=== PATIENT | female | born 1995 | race Caucasian/White ===

== ENCOUNTER 2018-05-21 14:10 | Emergency (ER) | payer OTHER ==
[~2018-05-21] VITALS: Ht 162.6 cm; Wt 65.8 kg
[2018-05-21] MEDS ORDERED: SODIUM CHLORIDE 0.9% 1000ML 1,000 ML IV STA (15:43)
[2018-05-21] MEDS ORDERED: MORPHINE SULFATE INJ 4 MG/ML INJ IV STA (15:43)
[2018-05-21] MEDS ORDERED: ONDANSETRON HCL INJ 2 MG/ML VIAL IV STA ×2 (15:43→19:17)
[2018-05-21 15:57] LABS: BASOPHILS % 0.4 % (0.0-1.0); EOSINOPHILS % 0.4 % (0.0-6.0); HEMATOCRIT 43.5 % (34.2-44.1); HEMOGLOBIN 14.6 g/dL (12.0-16.0); LYMPHOCYTES # (AUTO) 1.4 (1.0-3.2); LYMPHOCYTES % 13.1 % (18.0-39.1); MEAN CORPUSCULAR HEMOGLOBIN 30.4 pg (28-32); MEAN CORPUSCULAR HGB CONC 33.6 g/dL (31-35); MEAN CORPUSCULAR VOLUME 90.4 fL (81-99); MONOCYTES # (AUTO) 0.5 (0.2-0.8); MONOCYTES % 5.1 % (4.4-11.3); NEUTROPHILS # (AUTO) 8.4 (2.1-6.9); NEUTROPHILS % 80.5 % (38.7-80.0); PLATELET COUNT 425 x10e3/uL (140-360); RED BLOOD COUNT 4.81 x10e6/uL (3.6-5.1); RED CELL DISTRIBUTION WIDTH 12.5 % (11.7-14.4)
[2018-05-21 16:25] LABS: ALANINE AMINOTRANSFERASE 14 IU/L (0-55); ALBUMIN 4.3 g/dL (3.5-5.0); ALBUMIN/GLOBULIN RATIO 1.1 (0.8-2.0); ALKALINE PHOSPHATASE 89 IU/L (40-150); AMYLASE 16 U/L (25-125); ANION GAP 19.3 mmol/L (8-16); BLOOD UREA NITROGEN 8 mg/dL (7-26); BUN/CREATININE RATIO 12 (6-25); CALCIUM 10.6 mg/dL (8.4-10.2); CARBON DIOXIDE 19 mmol/L (22-29); CHLORIDE 105 mmol/L (98-107); CREATININE, SERUM 0.68 mg/dL (0.57-1.11); EST GLOMERULAR FILTRATION RATE > 60 ML/MIN (60-); GLUCOSE 104 mg/dL (74-118); LIPASE 28 U/L (8-78); POTASSIUM 4.3 mmol/L (3.5-5.1); SODIUM 139 mmol/L (136-145)
--- NOTE | 2018-05-21 17:46 | Diagnostic Imaging Report ---
EXAMINATION: CT of the abdomen and pelvis with contrast. TECHNIQUE: Spiral CT images of the abdomen and pelvis were performed from the lung bases to the lesser trochanters after the intravenous administration of 100 cc of Isovue 370 and the oral administration of water. Coronal and sagittal reformatted images were obtained. COMPARISON: None. CLINICAL HISTORY:Uncontrolled nausea and abdominal pain DISCUSSION: ABDOMEN/PELVIS: LOWER THORAX:Unremarkable. HEPATOBILIARY: No focal hepatic lesions. No intra or extrahepatic biliary ductal dilation. GALLBLADDER: Cholecystectomy clips. SPLEEN: No splenomegaly. PANCREAS: No focal masses or ductal dilatation. ADRENALS: No adrenal nodules. KIDNEYS/URETERS: No hydronephrosis, stones, or solid mass lesions. 1.0 x 0.8 cm hypodense lesion in the left anterior interpolar region, which contains eccentric dystrophic peripheral calcification (series 2, image 30). A 6-7 mm hypodense lesion in the left inferior pole is too small to characterize. PELVIC ORGANS/BLADDER: Bladder and uterus are unremarkable. No adnexal masses. PERITONEUM/RETROPERITONEUM: No free air or fluid. LYMPH NODES: No intra-abdominal, retroperitoneal, pelvic or inguinal lymphadenopathy. VESSELS: The celiac trunk,superior and inferior mesenteric and bilateral renal arteries are patent The portal, superior mesenteric and splenic veins are patent. GI TRACT: Postoperative changes in the stomach and proximal small bowel, consistent with gastric bypass surgery. No bowel dilation or evidence of obstruction. Bowel within bowel appearance of the level of the small bowel anastomosis in the left upper quadrant (for example series 2, image 25 and coronal image 22),, without evidence of proximal bowel dilation or abnormal enhancement. No pericolonic inflammatory changes. No fluid collections or significant stranding in the right lower quadrant. BONES AND SOFT TISSUE: No bony destructive lesions. No soft tissue abnormalities. IMPRESSION: 1. Postoperative changes in the stomach and proximal small bowel consistent with gastric bypass surgery. 2. Findings in the left upper quadrant may represent transient intussusception (retrograde) (at the anastomosis site. No proximal or efferent loop dilation or evidence of abnormal enhancement. No evidence of obstruction. 3. Mildly complex 1.8 cm left renal cyst, which can be evaluated with renal ultrasound on a nonemergent basis. Signed by: Dr. Nikhil Fofana M.D. on 05/21/2018 5:43 PM
[2018-05-21] MEDS ORDERED: SODIUM CHLORIDE 0.9% 50ML 50 ML ONE (18:16)
[2018-05-21] MEDS ORDERED: IOPAMIDOL 370 MG/ML 200 ML INFUS..BTL INJ ONE (18:16)
[2018-05-21] MEDS ORDERED: MORPHINE SULFATE 2 MG/ML SYR IV STA (19:17)
[2018-05-21 20:29] VITALS: BP 146/90
== END 2018-05-21 21:33 | disposition home or self-care (01) ==
LOC: ER 14:10
DX: R10.30 Lower abdominal pain, unspecified (principal); R11.2 Nausea with vomiting, unspecified; K56.1 Intussusception
CPT/HCPCS: 36415; 74177; 80053; 82150; 83690; 84702; 85025; 99284; J2270 ×2; J2405; J7030; Q9967

== ENCOUNTER 2021-10-28 12:11 | Inpatient (IN) | payer OTHER ==
[~2021-10-28] VITALS: Ht 162.6 cm; Wt 70.8 kg
[2021-10-28] MEDS ORDERED: METHOTREXA25 MG/1 ML SC (12:26)
[2021-10-28] MEDS ORDERED: FOLIC ACID0.4 MG PO (12:26)
[2021-10-28] MEDS ORDERED: REMICADE100 MG/VIA (12:26)
[2021-10-28] MEDS ORDERED: ONDANSETRON HCL INJ 2MG/ML 2ML 2 MG/ML VIAL IV STA (12:27)
[2021-10-28] MEDS ORDERED: Morphine 4mg Syringe 4 MG/ML INJ IV STA (12:27)
[2021-10-28] MEDS ORDERED: SODIUM CHLORIDE 0.9% 1000ML 1,000 ML IV ONE (12:45)
[2021-10-28] MEDS ORDERED: SODIUM CHLORIDE 0.9% 50ML 50 ML ONE (14:19)
[2021-10-28] MEDS ORDERED: IOPAMIDOL 370 MG/ML 200 ML INFUS..BTL INJ ONE (14:19)
[2021-10-28] MEDS: PIPERACILLIN/TAZOBACTAM 3.375 GM in SODIUM CHLORIDE 0.9% 50ML 50 ML IV SCH ×2 (14:30→17:25)
[2021-10-28] MEDS ORDERED: Morphine 4mg Syringe 4 MG/ML INJ IV PRN (14:45)
[2021-10-28] MEDS ORDERED: PROMETHAZINE 25MG/ NS 50ML (IV) IV STA (14:54)
[2021-10-28] MEDS ORDERED: PROMETHAZINE HCL (IM) 25 MG/ML VIAL IM ONE (15:13)
[2021-10-28 16:16] VITALS: BP 127/87
[2021-10-28] MEDS: ONDANSETRON HCL INJ 2MG/ML 2ML 2 MG/ML VIAL IV PRN ×2 (17:06→22:33)
[2021-10-28] MEDS: SODIUM CHLORIDE 0.9% 1000ML 1,000 ML IV SCH ×2 (17:25→23:55)
[2021-10-28 20:00] VITALS: BP 120/74
[2021-10-28] MEDS ORDERED: PROMETHAZINE 12.5MG/ NACL 0.9% 12.5 MG/50 ML BAG IV PRN (20:45)
[2021-10-28 21:00] VITALS: BP 120/74
[2021-10-28] MEDS: Morphine 4mg Syringe 4 MG/ML INJ IV PRN (21:50)
[2021-10-28] MEDS ORDERED: FOLIC ACID 1 MG TAB PO ONE ×2 (23:00)
[2021-10-28] MEDS ORDERED: METOCLOPRAMIDE HCL 10 MG/2ML VIAL IV ONE (23:00)
[2021-10-28] MEDS: Pantoprazole IV 40 MG in SODIUM CHLORIDE 0.9% 50ML 50 ML IV SCH (23:56)
[2021-10-29] VITALS (7 sets, daily range): BP systolic 104–122; BP diastolic 60–80
[2021-10-29] MEDS: PIPERACILLIN/TAZOBACTAM 3.375 GM in SODIUM CHLORIDE 0.9% 50ML 50 ML IV SCH ×5 (00:04→23:38)
[2021-10-29] MEDS: Morphine 4mg Syringe 4 MG/ML INJ IV PRN ×6 (02:17→21:18)
[2021-10-29] MEDS: Pantoprazole IV 40 MG in SODIUM CHLORIDE 0.9% 50ML 50 ML IV SCH ×5 (03:35→23:38)
[2021-10-29] MEDS: METOCLOPRAMIDE HCL 10 MG/2ML VIAL IV SCH ×4 (05:56→23:38)
[2021-10-29 06:02] LABS: BASOPHILS # (AUTO) 0.1 (0.0-0.1); BASOPHILS % 0.6 % (0.0-1.0); EOSINOPHILS # (AUTO) 0.2 (0.0-0.4); HEMATOCRIT 31.3 % (34.2-44.1); HEMOGLOBIN 10.7 g/dL (12.0-16.0); LYMPHOCYTES # (AUTO) 2.8 (1.0-3.2); LYMPHOCYTES % 25.3 % (18.0-39.1); MEAN CORPUSCULAR HEMOGLOBIN 35.1 pg (28-32); MEAN CORPUSCULAR HGB CONC 34.2 g/dL (31-35); MEAN CORPUSCULAR VOLUME 102.6 fL (81-99); MONOCYTES # (AUTO) 0.9 (0.2-0.8); MONOCYTES % 7.8 % (4.4-11.3); NEUTROPHILS % 63.8 % (38.7-80.0); PLATELET COUNT 234 x10e3/uL (140-360); RED BLOOD COUNT 3.05 x10e6/uL (3.6-5.1); RED CELL DISTRIBUTION WIDTH 14.4 % (11.7-14.4)
[2021-10-29 06:06] LABS: CLARITY,URINE SL CLOUDY (CLEAR); COLOR,URINE AMBER (YELLOW); KETONES,URINE 2+ (NEGATIVE); LEUKOCYTE ESTERASE ,URINE NEGATIVE (NEGATIVE); NITRITE,URINE NEGATIVE (NEGATIVE); PROTEIN,URINE DIPSTICK NEGATIVE (NEGATIVE); URINE UROBILINOGEN 1 mg/dL (0.2 - 1)
[2021-10-29 06:16] LABS: ALBUMIN 3.2 g/dL (3.5-5.0); ALBUMIN/GLOBULIN RATIO 1.3 (0.8-2.0); ANION GAP 10.2 mmol/L (8-16); CALCIUM 7.9 mg/dL (8.4-10.2); CREATININE, SERUM 0.74 mg/dL (0.57-1.11); POTASSIUM 3.2 mmol/L (3.5-5.1)
[2021-10-29 06:18] LABS: AMORPHOUS SEDIMENT,URINE MODERATE (FEW); BACTERIA,URINE MODERATE /HPF; EPITHELIAL CELLS,URINE MODERATE /LPF
[2021-10-29] MEDS ORDERED: PANTOPRAZOLE SO40 MG PO (06:31)
[2021-10-29] MEDS ORDERED: ULTRAM50 MG PO (06:31)
[2021-10-29] MEDS: SODIUM CHLORIDE 0.9% 1000ML 1,000 ML IV SCH ×3 (06:45→21:39)
[2021-10-29] MEDS ORDERED: TRAMADOL HCL 50 MG TAB PO PRN (08:00)
[2021-10-29] MEDS ORDERED: FOLIC ACID 1 MG TAB PO SCH ×2 (09:00)
[2021-10-29] MEDS ORDERED: PANTOPRAZOLE SOD 40 MG TABEC PO SCH (09:00)
[2021-10-29] MEDS: FOLIC ACID 1 MG TAB PO SCH (09:17)
[2021-10-29] MEDS ORDERED: POTASSIUM CHLORIDE 20MEQ/100ML 100 ML IV STA (10:10)
[2021-10-29] MEDS: ONDANSETRON HCL INJ 2MG/ML 2ML 2 MG/ML VIAL IV PRN (21:19)
[2021-10-29 23:21] LABS: % IRON SATURATION 34 % (15-50); IRON 103 ug/dL (50-170); TOTAL IRON BINDING CAPACITY 301 ug/dL (261-478); TRANSFERRIN 215 mg/dL (180-382)
[2021-10-30] VITALS (7 sets, daily range): BP systolic 92–114; BP diastolic 53–78
[2021-10-30] MEDS: Morphine 4mg Syringe 4 MG/ML INJ IV PRN ×7 (00:20→21:34)
[2021-10-30] MEDS: ONDANSETRON HCL INJ 2MG/ML 2ML 2 MG/ML VIAL IV PRN ×2 (00:20→04:40)
[2021-10-30] MEDS: Pantoprazole IV 40 MG in SODIUM CHLORIDE 0.9% 50ML 50 ML IV SCH ×4 (05:19→14:57)
[2021-10-30] MEDS: PIPERACILLIN/TAZOBACTAM 3.375 GM in SODIUM CHLORIDE 0.9% 50ML 50 ML IV SCH ×3 (05:19→17:06)
[2021-10-30] MEDS: METOCLOPRAMIDE HCL 10 MG/2ML VIAL IV SCH ×3 (05:19→17:06)
[2021-10-30] MEDS: SODIUM CHLORIDE 0.9% 1000ML 1,000 ML IV SCH ×3 (06:51→14:57)
[2021-10-30] MEDS: FOLIC ACID 1 MG TAB PO SCH (08:10)
[2021-10-30] MEDS: CYANOCOBALAMIN INJ 1,000 MCG/ML VIAL IM SCH (09:18)
[2021-10-30] MEDS ORDERED: POTASSIUM CHLORIDE 20 MEQ TAB CR PO ONE (16:30)
[2021-10-31] VITALS: BP 108/70
[2021-10-31] MEDS: PIPERACILLIN/TAZOBACTAM 3.375 GM in SODIUM CHLORIDE 0.9% 50ML 50 ML IV SCH ×3 (00:27→12:09)
[2021-10-31] MEDS: METOCLOPRAMIDE HCL 10 MG/2ML VIAL IV SCH ×3 (00:27→12:09)
[2021-10-31] MEDS: Pantoprazole IV 40 MG in SODIUM CHLORIDE 0.9% 50ML 50 ML IV SCH ×4 (01:33→12:09)
[2021-10-31] MEDS: Morphine 4mg Syringe 4 MG/ML INJ IV PRN ×2 (01:33→05:20)
[2021-10-31 03:33] VITALS: BP 107/73
[2021-10-31 05:39] LABS: BASOPHILS # (AUTO) 0.1 (0.0-0.1); BASOPHILS % 0.9 % (0.0-1.0); EOSINOPHILS # (AUTO) 0.5 (0.0-0.4); EOSINOPHILS % 5.7 % (0.0-6.0); HEMATOCRIT 31.6 % (34.2-44.1); HEMOGLOBIN 10.9 g/dL (12.0-16.0); LYMPHOCYTES # (AUTO) 2.1 (1.0-3.2); LYMPHOCYTES % 27.2 % (18.0-39.1); MEAN CORPUSCULAR HEMOGLOBIN 34.8 pg (28-32); MEAN CORPUSCULAR HGB CONC 34.5 g/dL (31-35); MONOCYTES # (AUTO) 0.6 (0.2-0.8); MONOCYTES % 7.6 % (4.4-11.3); NEUTROPHILS # (AUTO) 4.6 (2.1-6.9); NEUTROPHILS % 58.2 % (38.7-80.0); PLATELET COUNT 206 x10e3/uL (140-360); RED BLOOD COUNT 3.13 x10e6/uL (3.6-5.1); RED CELL DISTRIBUTION WIDTH 13.3 % (11.7-14.4)
[2021-10-31 06:02] LABS: ALANINE AMINOTRANSFERASE 14 IU/L (0-55); ALBUMIN 3.4 g/dL (3.5-5.0); ALBUMIN/GLOBULIN RATIO 1.4 (0.8-2.0); ALKALINE PHOSPHATASE 66 IU/L (40-150); ANION GAP 9.5 mmol/L (8-16); CALCIUM 8.5 mg/dL (8.4-10.2); CARBON DIOXIDE 25 mmol/L (22-29); CHLORIDE 108 mmol/L (98-107); CREATININE, SERUM 0.65 mg/dL (0.57-1.11); EST GLOMERULAR FILTRATION RATE 109 ML/MIN (60-); GLUCOSE 87 mg/dL (74-118); POTASSIUM 3.5 mmol/L (3.5-5.1); SODIUM 139 mmol/L (136-145)
[2021-10-31 06:03] LABS: BUN/CREATININE RATIO 8 (6-25)
[2021-10-31 06:13] LABS: BLOOD UREA NITROGEN < 5 mg/dL (7-26)
[2021-10-31] MEDS: SODIUM CHLORIDE 0.9% 1000ML 1,000 ML IV SCH (06:46)
[2021-10-31 07:58] VITALS: BP 102/70
[2021-10-31 08:04] VITALS: BP 102/70
[2021-10-31] MEDS: FOLIC ACID 1 MG TAB PO SCH (08:15)
[2021-10-31] MEDS: CYANOCOBALAMIN INJ 1,000 MCG/ML VIAL IM SCH (08:15)
[2021-10-31] MEDS: ACETAMINOPHEN/CODEINE 300MG - 30MG TAB PO PRN ×2 (08:16→12:22)
[2021-10-31] MEDS ORDERED: FLUCONAZOLE 100 MG/NS 50 ML 50 ML IV SCH (09:00)
[2021-10-31 11:45] VITALS: BP 110/68
[2021-10-31] MEDS ORDERED: METRONIDAZOLE500 MG PO (13:36)
[2021-10-31] MEDS ORDERED: ONDANSETRON ODT4 MG PO (13:36)
[2021-10-31] MEDS ORDERED: CEPHALEXIN500 MG PO (13:36)
== END 2021-10-31 14:12 | disposition home or self-care (01) | DRG 392 ==
LOC: FSED 12:18 → ERHOLD 14:40 → MED/SURG 16:16 → OBSVTOIN 10-30 08:07
PROVIDERS: ADMIT Internal Medicine; ATTEND Internal Medicine
PROC: 02HV33Z Insertion of Infusion Device into Superior Vena Cava, Percutaneous Approach (ICD-10-PCS; principal; 2021-10-30)
DX: K58.0 Irritable bowel syndrome with diarrhea (principal); N39.0 Urinary tract infection, site not specified; M45.9 Ankylosing spondylitis of unspecified sites in spine; E87.6 Hypokalemia; N83.202 Unspecified ovarian cyst, left side; K57.90 Diverticulosis of intestine, part unspecified, without perforation or abscess without bleeding; E80.6 Other disorders of bilirubin metabolism; Z98.84 Bariatric surgery status; R15.2 Fecal urgency; G44.1 Vascular headache, not elsewhere classified; E03.9 Hypothyroidism, unspecified
CPT/HCPCS: 36415; 36555; 36569; 71045; 74177; 80048; 80053; 80076; 80299; 81001; 81003; 81025; 82397; 82607; 82746; 82948; 83540; 84132; 84466; 85025; 85045; 85651; 86141; 86256; 86671; 87086; 96374; 96375; 99284; G0378; J1450; J2270; J2405; J2543; J2550; J2765; J3420; J3480; J7030; Q9967; U0002

== ENCOUNTER 2022-03-23 13:54 | Emergency (ER) | payer OTHER ==
[~2022-03-23] VITALS: Ht 162.6 cm; Wt 68.0 kg
[~2022-03-23 13:54] MED LIST: CEPHALEXIN500 MG PO; FOLIC ACID0.4 MG PO; METHOTREXA25 MG/1 ML SC; METRONIDAZOLE500 MG PO; ONDANSETRON ODT4 MG PO; PANTOPRAZOLE SO40 MG PO; REMICADE100 MG/VIA; ULTRAM50 MG PO
[2022-03-23] MEDS ORDERED: ONDANSETRON HCL 4 MG ORAL DISINTEGRATING TAB PO ONE (14:45)
[2022-03-23] MEDS ORDERED: HYDROCODONE/APAP 5MG-325MG TAB PO ONE (14:45)
[2022-03-23] MEDS ORDERED: ONDANSETRON HCL 4 MG ORAL DISINTEGRATING TAB ONE (14:55)
[2022-03-23] MEDS ORDERED: HYDROCODONE/APAP 5MG-325MG TAB ONE (14:55)
[2022-03-23] MEDS ORDERED: ACETAMINOPHEN-1 EAC4 PO (15:35)
[2022-03-23] MEDS ORDERED: ONDANSETRON ODT4 MG PO (15:35)
== END 2022-03-23 16:00 | disposition home or self-care (01) ==
LOC: FSED 14:43
DX: M79.601 Pain in right arm (principal); G56.81 Other specified mononeuropathies of right upper limb; E03.9 Hypothyroidism, unspecified; Z98.84 Bariatric surgery status
CPT/HCPCS: 72040; 99283; Q0162